=== PATIENT | male | born 1985 | race Caucasian/White ===

== ENCOUNTER 2020-08-04 12:55 | Emergency (ER) | payer OTHER ==
[2020-08-04 13:16] VITALS: BP 120/70; PULSE 54
--- NOTE | 2020-08-04 13:54 | EDM.PDOC ---
ED HPI GENERAL MEDICAL PROBLEM - General Chief Complaint: Lower Extremity Injury/Pain Stated Complaint: RIGHT KNEE INJURY Time Seen by Provider: 08/04/20 13:20 Source of Information: Reports: Patient, Family History Limitations: Reports: No Limitations - History of Present Illness INITIAL COMMENTS - FREE TEXT/NARRATIVE: 34-year-old male with a right knee injury. He was trimming a tree when the knee got pinned when the tree fell in an awkward direction. He has significant pain on the medial aspect of the knee with some swelling, is unable to bear weight. No other injury. Onset: Sudden Duration: Hour(s): (Within the last hour and a half) Location: Reports: Upper Extremity, Right Associated Symptoms: Reports: No Other Symptoms - Related Data Allergies Allergy/AdvReac Type Severity Reaction Status Date / Time erythromycin base Allergy Vomiting Verified 08/04/20 13:08 [Erythromycin Base] Home Meds: Home Meds NK [No Known Home Meds] 03/05/14 [History] Past Medical History - Past Health History Medical/Surgical History: Denies Medical/Surgical History Social & Family History - Family History Family Medical History: No Pertinent Family History - Tobacco Use Tobacco Use Status *Q: Never Tobacco User Review of Systems - Review of Systems Review Of Systems: See Below Respiratory: Denies: Shortness of Breath Cardiovascular: Denies: Chest Pain GI/Abdominal: Reports: No Symptoms ED EXAM, GENERAL - Physical Exam Exam: See Below Exam Limited By: No Limitations General Appearance: Alert, No Apparent Distress Head: Atraumatic Respiratory/Chest: No Respiratory Distress Extremities: Other (The right knee has a swollen area on the medial aspect over the tibial plateau. It is very tender, it is also sore with valgus stress. The lateral joint line and patella are nontender) Course - Vital Signs Last Recorded V/S: Last Vital Signs Temp 97.7 F 08/04/20 13:15 Pulse 54 L 08/04/20 13:15 Resp 14 08/04/20 13:15 BP 120/70 08/04/20 13:15 Pulse Ox 98 08/04/20 13:15 - Orders/Labs/Meds Orders: Active Orders 24 hr Category Date Time Status Consult to Orthopedic Clinic [CONS] Routine Cons 08/04/20 13:55 Active Knee Min 4V Rt [CR] Stat Exams 08/04/20 13:21 Taken DME for Discharge [COMM] Stat Oth 08/04/20 13:48 Ordered - Re-Assessments/Exams Free Text/Narrative Re-Assessment/Exam: 08/04/20 14:13 An x-ray of the knee confirms a medial tibial fracture and an oblique pattern. A knee immobilizer was applied, crutches were given and the patient will follow up with Dr. Wu later this week. Departure - Departure Time of Disposition: 14:17 Disposition: Home, Self-Care 01 Clinical Impression: Closed right tibial fracture Qualifiers: Encounter type: initial encounter Tibia location: proximal Fracture morphology: unspecified fracture morphology Qualified Code(s): S82.101A - Unspecified fracture of upper end of right tibia, initial encounter for closed fracture - Discharge Information Instructions: Nondisplaced Tibial Plateau Fracture Referrals: PCP,None [Primary Care Provider] - Forms: ED Department Discharge Care Plan Goals: Keep knee in immobilizer and use crutches, call Dr. Wu's office Thursday for a time to be seen on Thursday or . Ibuprofen will help with discomfort. Sepsis Event Note (ED) - Evaluation Sepsis Screening Result: No Definite Risk - Focused Exam Vital Signs: Vital Signs Temp Pulse Resp BP Pulse Ox 08/04/20 13:15 97.7 F 54 L 14 120/70 98 - My Orders Last 24 Hours: My Active Orders 08/04/20 13:21 Knee Min 4V Rt [CR] Stat 08/04/20 13:48 DME for Discharge [COMM] Stat 08/04/20 13:55 Consult to Orthopedic Clinic [CONS] Routine - Assessment/Plan Last 24 Hours: My Active Orders 08/04/20 13:21 Knee Min 4V Rt [CR] Stat 08/04/20 13:48 DME for Discharge [COMM] Stat 08/04/20 13:55 Consult to Orthopedic Clinic [CONS] Routine
--- NOTE | 2020-08-06 10:27 | CR ---
Knee Min 4V Rt CLINICAL HISTORY: Injury FINDINGS: Patient has a comminuted fracture the proximal tibia. There is a fracture line extending through the metaphysis into the proximal diaphysis. Femur and fibula appear intact. IMPRESSION: Comminuted fracture of the proximal tibia
== END 2020-08-04 14:18 | disposition home or self-care (01) ==
LOC: JP.ED 12:55
DX: S82.101A Unspecified fracture of upper end of right tibia, initial encounter for closed fracture (principal); Z88.1 Allergy status to other antibiotic agents; W14.XXXA Fall from tree, initial encounter
CPT/HCPCS: 73564-26-RT; 73564-RT; 99283; 99283-25

== ENCOUNTER 2021-09-26 05:52 | Day surgery (SDC) | payer BC, MEDICAID ==
[2021-09-26] MEDS ORDERED: Acetaminophen 500 MG Tab PO ONE (06:00)
[2021-09-26] MEDS ORDERED: Dextrose 5%-Lactated Ringers 1,000 ML IV SCH (06:30)
[2021-09-26] MEDS ORDERED: Lidocaine 1% with EPINEPHrine 1:100,000 50 ML MDV ONE (06:52)
[2021-09-26] MEDS ORDERED: Bupivacaine 0.5% 50 ML MDV ONE (06:52)
[2021-09-26] MEDS ORDERED: Bacitracin Oint 1 GM U/D Packet ONE (06:52)
[2021-09-26] MEDS ORDERED: ceFAZolin 2 GM in Premix Bag 1 BAG IV ONE (07:00)
[2021-09-26] MEDS ORDERED: Propofol 200 MG/20 ML SDV ONE (07:16)
[2021-09-26] MEDS ORDERED: fentaNYL 250 MCG/5 ML SDV ONE (07:16)
[2021-09-26] MEDS ORDERED: Glycopyrrolate 0.2 MG/ML 5 ML MDV ONE (07:16)
[2021-09-26] MEDS ORDERED: Neostigmine Methylsulfate 1 MG/ML 5 ML Syringe ONE (07:16)
[2021-09-26] MEDS ORDERED: Rocuronium 50 MG/5 ML Vial ONE (07:16)
[2021-09-26] MEDS ORDERED: Succinylcholine 200 MG/10 ML MDV ONE (07:16)
[2021-09-26] MEDS ORDERED: Ondansetron 4 MG/2 ML SDV ONE (07:16)
[2021-09-26] MEDS ORDERED: Ketorolac 30 MG/ML SDV ONE (08:48)
[2021-09-26 10:17] VITALS: PULSE 54
[2021-09-26 10:30] VITALS: BP 120/74
== END 2021-09-26 10:41 | disposition home or self-care (01) ==
LOC: JP.SDS 05:52
PROVIDERS: ATTEND Surgery
DX: D17.1 Benign lipomatous neoplasm of skin and subcutaneous tissue of trunk (principal); Z88.1 Allergy status to other antibiotic agents
CPT/HCPCS: 36415; 80048; 85027; 88304; A9270-GY; J0330; J0690; J1885; J2405; J2704; J2710; J3010; J3490; J7121

== ENCOUNTER 2022-09-24 18:41 | Emergency (ER) | payer BC ==
[2022-09-24] MEDS ORDERED: Lidocaine 1% 5 ML VIAL INJECT ONE (18:43)
[2022-09-24] MEDS ORDERED: Bacitracin Oint 1 GM U/D Packet TOP ONE (18:44)
[2022-09-24] MEDS ORDERED: Diphtheria,Pertussis(Acell),Tetanus Vaccine 0.5 ML Syringe IM ONE (18:44)
[2022-09-24 19:09] VITALS: BP 119/63; PULSE 67
== END 2022-09-24 19:56 | disposition home or self-care (01) ==
LOC: JP.ED 18:41
DX: S61.011A Laceration without foreign body of right thumb without damage to nail, initial encounter (principal); Z87.891 Personal history of nicotine dependence; Z86.16 Personal history of COVID-19; Z88.1 Allergy status to other antibiotic agents; Z23 Encounter for immunization; W29.3XXA Contact with powered garden and outdoor hand tools and machinery, initial encounter
CPT/HCPCS: 12001; 90471; 90715; 99282; 99282-25